=== PATIENT | male | born 1950 | race Caucasian/White ===

== ENCOUNTER 2018-01-24 11:03 | Day surgery (SDC) | payer OTHER ==
--- NOTE | 2018-01-22 14:18 | RAD REPORT ---
EXAM DESCRIPTION: RADOP - Outpt Chest Pa/Lat (2 Views) - 01/22/2018 2:12 pm CLINICAL HISTORY: Preop COMPARISON: 2014 FINDINGS: The lungs appear clear of acute infiltrate. The heart is upper limits normal size. IMPRESSION: No acute abnormality is displayed
[2018-01-22 15:08] LABS: Urine Appearance CLEAR; Urine Bilirubin NEGATIVE (NEG); Urine Blood NEGATIVE (NEG); Urine Color DK YELLOW; Urine Glucose NEGATIVE (NEG); Urine Protein NEGATIVE (NEG); Urine pH 7.5 (5.0-7.0)
[2018-01-22 15:10] LABS: Absolute Lymphocytes (CBC) 1.9 K/uL (0.7-4.9); Absolute Monocytes 0.7 K/uL (0.1-1.3); Absolute Neutrophil 3.2 K/uL (1.8-8.0); Basophils % 0.5 % (0-1.3); Eosinophils % 5.2 % (0-4.4); Hematocrit 41.4 % (39.6-49.0); Lymphocytes % 30.6 % (15.3-44.8); MCH 35.6 pg (27.0-35.0); MCV 103.5 fL (80-100); MPV 9.1 fL (7.6-11.3); Monocytes % 10.7 % (3.3-12.3)
[2018-01-22 15:15] LABS: Urine Microscopic Reflex ORDER UMIC
[2018-01-22 15:22] LABS: Potassium 4.1 mEq/L (3.6-5.0)
[2018-01-22 15:30] LABS: Protime INR 0.95
[2018-01-22 15:54] LABS: Urine Bacteria <20 /HPF (NONE SEEN); Urine Culture Reflex Order NOT NEEDED
--- NOTE | 2018-01-22 16:20 | EKG ---
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
[2018-01-24] MEDS ORDERED: GENTAMICIN 80 MG/100 ML BAG 80 MG/100 ML BAG IV ONE (11:30)
[2018-01-24] MEDS ORDERED: Ringers Lactate 1,000 ML IV ONE (11:30)
[2018-01-24] MEDS ORDERED: PROPOFOL 200 MG/20 ML VIAL IV ONE (12:32)
[2018-01-24] MEDS ORDERED: MIDAZOLAM HCL 2 MG/2 ML INJ ONE (12:33)
[2018-01-24] MEDS ORDERED: LIDOCAINE 2% MPF 5 ML VIAL ONE (12:33)
[2018-01-24] MEDS ORDERED: FENTANYL CITR 100 MCG/2 ML ONE (12:33)
[2018-01-24] MEDS ORDERED: ONDANSETRON 4 MG/2 ML VIAL ONE (12:33)
[2018-01-24 14:13] VITALS: TEMP 98
[2018-01-24 15:16] VITALS: BP 158/62; O2SAT 98
== END 2018-01-24 15:00 | disposition home or self-care (01) ==
LOC: OR 11:03
PROVIDERS: ATTEND Urology
PROC: 0VT08ZZ Resection of Prostate, Via Natural or Artificial Opening Endoscopic (ICD-10-PCS; principal; 2018-01-24 12:00)
DX: N40.1 Benign prostatic hyperplasia with lower urinary tract symptoms (principal); R39.12 Poor urinary stream; R31.0 Gross hematuria; N52.9 Male erectile dysfunction, unspecified; E29.1 Testicular hypofunction; I10 Essential (primary) hypertension; J44.9 Chronic obstructive pulmonary disease, unspecified; J45.909 Unspecified asthma, uncomplicated; K21.9 Gastro-esophageal reflux disease without esophagitis; K51.90 Ulcerative colitis, unspecified, without complications; M19.90 Unspecified osteoarthritis, unspecified site; M10.9 Gout, unspecified; Z87.891 Personal history of nicotine dependence; Z82.49 Family history of ischemic heart disease and other diseases of the circulatory system
CPT/HCPCS: 36415; 52601; 71046; 80048; 85025; 85610; 85730; 87086; 87088; 88305; 93005; J1580; J2250; J2405; J3010; 81003; 81015

== ENCOUNTER 2018-11-19 13:33 | Emergency (ER) | payer OTHER ==
[2018-11-19 14:24] LABS: Absolute Lymphocytes (CBC) 1.3 K/uL (0.7-4.9); Absolute Monocytes 0.7 K/uL (0.1-1.3); Absolute Neutrophil 6.1 K/uL (1.8-8.0); Basophils % 0.3 % (0-1.3); Eosinophils % 3.9 % (0-4.4); Hematocrit 40.3 % (39.6-49.0); Lymphocytes % 15.9 % (15.3-44.8); MPV 9.5 fL (7.6-11.3); Monocytes % 7.7 % (3.3-12.3); RBC Red Blood Cell Count 3.82 M/uL (4.33-5.43)
[2018-11-19 14:25] LABS: Protime INR 1.02
[2018-11-19 14:46] LABS: ALT/SGPT 41 U/L (12-78); AST/SGOT 51 U/L (15-37); Albumin 3.8 g/dL (3.4-5.0); Alkaline Phosphatase 126 U/L (45-117); BUN Blood Urea Nitrogen 25 mg/dL (7-18); Bicarbonate 28 mmol/L (21-32); Bilirubin Direct 0.4 mg/dL (0-0.2); Bilirubin Total 0.9 mg/dL (0.2-1.0); Glucose Level 112 mg/dL (74-106); Magnesium 1.9 mg/dL (1.8-2.4); NT PRO-BNP 101 pg/mL (<125); Potassium 3.6 mmol/L (3.5-5.1); Protein, Total 8.1 g/dL (6.4-8.2); Sodium Level 136 mmol/L (136-145); Troponin (Emerg Dept Use Only) < 0.02 ng/mL (0.0-0.045)
[2018-11-19 14:57] LABS: Blood Morphology Comment NOTED (NOT SEEN); Macrocytosis 1+; Platelet Estimate ADEQ; Urine White Blood Cell Casts OK
--- NOTE | 2018-11-19 15:01 | RAD REPORT ---
EXAM DESCRIPTION: RAD - Chest Single View - 11/19/2018 2:53 pm CLINICAL HISTORY: CHEST PAIN Chest pain. COMPARISON: CHEST PA AND LAT 2 VIEW dated 05/05/2015 FINDINGS: Portable technique limits examination quality. The lungs are grossly clear. The heart is normal in size. Mildly tortuous thoracic aorta. No displace d fractures. IMPRESSION: No acute intrathoracic process suspected.
[2018-11-19] MEDS ORDERED: CYANOCOBALAMIN 1000MCG/ML INJ IM ONE (16:00)
--- NOTE | 2018-11-19 16:46 | EDPHYS ---
Physician Documentation [facility] Name: Felice Cervantes Age: 68 yrs Sex: Male : 1950 Arrival Date: 11/19/2018 Time: 13:36 Bed 14 Private MD: ED Physician Delfino Rehman HPI: 11/19 13:44 This 68 yrs old Male presents to ER via EMS with complaints of Chest Pain. snw 13:44 The patient or guardian reports chest pain that is located primarily in the anterior snw chest wall, left. Onset: suddenly. The pain does not radiate. Associated signs and symptoms: Pertinent positives: diaphoresis. The chest pain is described as clutching. Duration: The patient or guardian reports a single episode, resolved post sublingual NTG x 1. Modifying factors: The symptoms are alleviated by NTG. Severity of pain: At its worst the pain was severe. EMS care prior to arrival includes: aspirin, saline lock, supplemental oxygen. The patient has not experienced similar symptoms in the past. The patient has not recently seen a physician, sees Dr. Zavala and Dr. Rubio. pt states he drank 3 tall boys daily until this past . 4 days ago. Historical: - Allergies: 13:43 Amoxicillin-Pot Clavulanate; ph - Home Meds: 16:46 aspirin 81 mg Oral chew 1 tab once daily [Active]; simvastatin 10 mg Oral tab 1 tab hb once daily [Active]; allopurinol 300 mg Oral tab 1 tab once daily [Active]; losartan 25 mg oral tab 1 tab once daily [Active]; carvedilol 25 mg oral tab 1 tab 2 times per day [Active]; Dexilant 60 mg oral CpDB 1 cap once daily [Active]; clonidine HCl 0.1 mg Oral tab 1 tab 2 times per day [Active]; folic acid 400 mcg Oral tab 1 tab once daily [Active]; Asacol Oral 800 mg [Active]; AndroGel transdermal transdermal [Active]; tamsulosin 0.4 mg oral cp24 1 cap once daily [Active]; hydrochlorothiazide 12.5 mg Oral tab 1 tab once daily [Active]; Super B Maxi Complex 0.4 mg oral tab [Active]; Vitamin B-12 2,000 mcg Oral TbER [Active]; Vitamin C 1,000 mg Oral tab [Active]; Vitamin D Oral [Active]; Vitamin E Oral [Active]; [place]-3 Fish Oil oral oral [Active]; coenzyme Q10 oral oral [Active]; Danielle 180 mg Oral tab 1 tab once daily [Active]; Zyrtec 10 mg Oral chew 1 tab once daily [Active]; - PMHx: 13:43 Hyperlipidemia; Hypertension; Gout; ph - Immunization history:: Adult Immunizations unknown. - Social history:: Smoking status: Patient/guardian denies using tobacco, Patient uses alcohol, Pt states, " I quit drinking about 4 days ago." Pt reports drinking approx 4 drinks of vodka per day. - Ebola Screening: : No symptoms or risks identified at this time. ROS: 13:37 Constitutional: Negative for fever, chills, and weight loss, Eyes: Negative for injury, snw pain, redness, and discharge, ENT: Negative for injury, pain, and discharge, Neck: Negative for injury, pain, and swelling, Respiratory: Negative for shortness of breath, cough, wheezing, and pleuritic chest pain, Abdomen/GI: Negative for abdominal pain, nausea, vomiting, diarrhea, and constipation, Back: Negative for injury and pain, : Negative for injury, bleeding, discharge, and swelling, MS/Extremity: Negative for injury and deformity, Skin: Negative for injury, rash, and discoloration, Neuro: Negative for headache, weakness, numbness, tingling, and seizure. 13:37 Cardiovascular: Positive for chest pain, diaphoresis. Exam: 13:37 Constitutional: This is a well developed, well nourished patient who is awake, alert, snw and in no acute distress. Head/Face: Normocephalic, atraumatic. Eyes: Pupils equal round and reactive to light, extra-ocular motions intact. Lids and lashes normal. Conjunctiva and sclera are non-icteric and not injected. Cornea within normal limits. Periorbital areas with no swelling, redness, or edema. ENT: Nares patent. No nasal discharge, no septal abnormalities noted. Tympanic membranes are normal and external auditory canals are clear. Oropharynx with no redness, swelling, or masses, exudates, or evidence of obstruction, uvula midline. Mucous membranes moist. Neck: Trachea midline, no thyromegaly or masses palpated, and no cervical lymphadenopathy. Supple, full range of motion without nuchal rigidity, or vertebral point tenderness. No Meningismus. Chest/axilla: Normal chest wall appearance and motion. Nontender with no deformity. No lesions are appreciated. Cardiovascular: Regular rate and rhythm with a normal S1 and S2. No gallops, murmurs, or rubs. Normal PMI, no JVD. No pulse deficits. Respiratory: Lungs have equal breath sounds bilaterally, clear to auscultation and percussion. No rales, rhonchi or wheezes noted. No increased work of breathing, no retractions or nasal flaring. Abdomen/GI: Soft, non-tender, with normal bowel sounds. No distension or tympany. No guarding or rebound. No evidence of tenderness throughout. Back: No spinal tenderness. No costovertebral tenderness. Full range of motion. Skin: Warm, dry with normal turgor. Normal color with no rashes, no lesions, and no evidence of cellulitis. MS/ Extremity: Pulses equal, no cyanosis. Neurovascular intact. Full, normal range of motion. Neuro: Awake and alert, GCS 15, oriented to person, place, time, and situation. Cranial nerves II-XII grossly intact. Motor strength 5/5 in all extremities. Sensory grossly intact. Cerebellar exam normal. Normal gait. Vital Signs: 13:41 BP 134 / 87; Pulse 83; Resp 18; Temp 97.8; Pulse Ox 98% on R/A; Weight 105.23 kg; ph Height 6 ft. 0 in. (182.88 cm); Pain 0/10; 15:30 BP 136 / 82; Pulse 81; Resp 18; Pulse Ox 99% on R/A; ph 16:33 BP 141 / 80; Pulse 79; Resp 18; Temp 97.2(O); Pulse Ox 96% on R/A; Pain 0/10; mh5 13:41 Body Mass Index 31.46 (105.23 kg, 182.88 cm) ph MDM: 13:47 Patient medically screened. snw 16:45 The patient was not given aspirin in the Emergency Department. Administered by EMS. snw Data reviewed: vital signs, nurses notes. Data interpreted: Pulse oximetry: on room air is 96 %. Interpretation: acceptable. Counseling: I had a detailed discussion with the patient and/or guardian regarding: the historical points, exam findings, and any diagnostic results supporting the discharge/admit diagnosis, the presence of at least one elevated blood pressure reading (>120/80) during this emergency department visit, lab results, radiology results, the need for further work-up and treatment in the hospital, pt wants to leave AMA. Dr. Hernandez has seen patient and discussed need for re-evaluation. Pt states he gets EKGs q 3 months and will have follow up with Dr. Zavala next week. Advised return to ED for any chest pain, SOB, diaphoresis. Pt states understanding. 11/19 13:37 Order name: Basic Metabolic Panel; Complete Time: 14:47 snw 11/19 13:37 Order name: CBC with Diff; Complete Time: 14:58 snw 11/19 13:37 Order name: LFT's; Complete Time: 14:47 snw 11/19 13:37 Order name: Magnesium; Complete Time: 14:47 snw 11/19 13:37 Order name: NT PRO-BNP; Complete Time: 14:47 snw 11/19 13:37 Order name: PT-INR; Complete Time: 14:33 snw 11/19 13:37 Order name: Troponin (emerg Dept Use Only); Complete Time: 14:47 snw 11/19 13:37 Order name: XRAY Chest (1 view); Complete Time: 15:04 snw 11/19 13:37 Order name: EKG; Complete Time: 13:39 snw 11/19 13:37 Order name: Cardiac monitoring; Complete Time: 15:03 snw 11/19 13:37 Order name: EKG - Nurse/Tech; Complete Time: 15:03 snw 11/19 13:37 Order name: ETOH Level; Complete Time: 14:47 snw 11/19 14:31 Order name: CBC Smear Scan; Complete Time: 14:58 EDMS 11/19 13:37 Order name: IV Saline Lock; Complete Time: 15:03 snw 11/19 13:37 Order name: Labs collected and sent; Complete Time: 15:03 snw 11/19 13:37 Order name: O2 Per Protocol; Complete Time: 15:03 snw 11/19 13:37 Order name: O2 Sat Monitoring; Complete Time: 15:03 snw Administered Medications: No medications were administered Disposition: 11/20 07:07 Co-signature as Attending Physician, Delfino Rehman MD I agree with the assessment and [facility] plan of care. Disposition: 11/19/18 16:49 Patient has left against medical advice. Impression: Chest pain, unspecified. - Patients states they are going to Home. - Condition is Stable. - Discharge Instructions: Nonspecific Chest Pain, Hypertension, Aspirin and Your Heart. - Prescriptions for Nitrostat 0.4 mg Sublingual Tablet, Sublingual - place 1 tablet by SUBLINGUAL route one time As needed - at the first sign of an attack; no more than 3 tablets are recommended within a 15 minute period.; 25 tablet. Protonix 40 mg Oral Tablet - take 1 tablet by ORAL route once daily; 30 tablet. Follow up: Private Physician; When: Tomorrow; Reason: Recheck today's complaints, Continuance of care, Re-evaluation by your physician. - Problem is new. - Symptoms are resolved. Signatures: Dispatcher [employer] Delfino Cardenas MD MD cha Therrien, Shelly, DISPLAY DESIGNER-C DISPLAY DESIGNER-Csnw Jennifer Oneal, KVNG RN Kim Abrams RN RN Corrections: (The following items were deleted from the chart) 11/19 16:48 16:45 Hospitalization Ordered by Julio Cesar Hernandez DO for Observation. Preliminary snw diagnosis is Chest pain, unspecified. Bed requested for Telemetry/MedSurg (observation). Status is Observation. Condition is Stable. Problem is new. Symptoms are resolved. UTI on Admission? No. snw 17:26 16:49 11/19/2018 16:49 Patients has left against medical advice. Impression: Chest ph pain, unspecified. Patient states they are going to Home. Condition is Stable. Follow up: Private Physician; When: Tomorrow; Reason: Recheck today's complaints, Continuance of care, Re-evaluation by your physician. Problem is new. Symptoms are resolved. snw
--- NOTE | 2018-11-19 16:46 | ER ---
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 Transition of care: patient was not received from another setting of care. Onset of symptoms was November 19, 2018. Risk Assessment: Do you want to hurt yourself or someone else? Patient reports no desire to harm self or others. Initial Sepsis Screen: Does the patient meet any 2 criteria? No. Patient's initial sepsis screen is negative. Does the patient have a suspected source of infection? No. Patient's initial sepsis screen is negative. Care prior to arrival: Medication(s) given: ASA, 81 mg, x 4, IV initiated. 20 GA, in the left hand. 13:36 Method Of Arrival: EMS: [facility] ph 13:36 Acuity: MARIAH 3 ph Historical: - Allergies: 13:43 Amoxicillin-Pot Clavulanate; ph - Home Meds: 16:46 aspirin 81 mg Oral chew 1 tab once daily [Active]; simvastatin 10 mg Oral tab 1 tab hb once daily [Active]; allopurinol 300 mg Oral tab 1 tab once daily [Active]; losartan 25 mg oral tab 1 tab once daily [Active]; carvedilol 25 mg oral tab 1 tab 2 times per day [Active]; Dexilant 60 mg oral CpDB 1 cap once daily [Active]; clonidine HCl 0.1 mg Oral tab 1 tab 2 times per day [Active]; folic acid 400 mcg Oral tab 1 tab once daily [Active]; Asacol Oral 800 mg [Active]; AndroGel transdermal transdermal [Active]; tamsulosin 0.4 mg oral cp24 1 cap once daily [Active]; hydrochlorothiazide 12.5 mg Oral tab 1 tab once daily [Active]; Super B Maxi Complex 0.4 mg oral tab [Active]; Vitamin B-12 2,000 mcg Oral TbER [Active]; Vitamin C 1,000 mg Oral tab [Active]; Vitamin D Oral [Active]; Vitamin E Oral [Active]; [place]-3 Fish Oil oral oral [Active]; coenzyme Q10 oral oral [Active]; Danielle 180 mg Oral tab 1 tab once daily [Active]; Zyrtec 10 mg Oral chew 1 tab once daily [Active]; - PMHx: 13:43 Hyperlipidemia; Hypertension; Gout; ph - Immunization history:: Adult Immunizations unknown. - Social history:: Smoking status: Patient/guardian denies using tobacco, Patient uses alcohol, Pt states, " I quit drinking about 4 days ago." Pt reports drinking approx 4 drinks of vodka per day. - Ebola Screening: : No symptoms or risks identified at this time. Screenin:41 Abuse screen: Denies threats or abuse. Denies injuries from another. Nutritional ph screening: No deficits noted. Tuberculosis screening: No symptoms or risk factors identified. Fall Risk None identified. Assessment: 14:00 General: Appears in no apparent distress. comfortable, well groomed, Behavior is calm, ph cooperative, appropriate for age, Denies fever, feeling ill. Pain: Denies pain. 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 Neuro: Level of Consciousness is awake, alert, obeys commands, Oriented to person, place, time, situation. 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 Respiratory: Airway is patent Respiratory effort is even, unlabored, Respiratory pattern is regular, symmetrical. GI: No signs and/or symptoms were reported involving the gastrointestinal system. Derm: Skin is intact, is healthy with good turgor, Skin is pink, warm \\T\\ dry. Musculoskeletal: Circulation, motion, and sensation intact. Range of motion: intact in all extremities. 15:00 Reassessment: Patient appears in no apparent distress at this time. Patient and/or ph family updated on plan of care and expected duration. Pain level reassessed. Patient is alert, oriented x 3, equal unlabored respirations, skin warm/dry/pink. Patient denies pain at this time. 16:00 Reassessment: Patient appears in no apparent distress at this time. Patient and/or ph family updated on plan of care and expected duration. Pain level reassessed. Patient is alert, oriented x 3, equal unlabored respirations, skin warm/dry/pink. Pt resting quietly, awaiting lab and radiology results, SO at bedside, VSS Patient denies pain at this time. 17:00 Reassessment: Patient appears in no apparent distress at this time. Patient and/or ph family updated on plan of care and expected duration. Pain level reassessed. Patient is alert, oriented x 3, equal unlabored respirations, skin warm/dry/pink. Dr Hernanedz and MARY Love at bedside to speak w/ pt, pt states that he does not wiosh to be admitted to hospital, pt to leave AMA Patient denies pain at this time. Patient states feeling better. Patient states symptoms have improved. 18:52 Reassessment: Prescriptions called in to [facility]. hb Vital Signs: 13:41 BP 134 / 87; Pulse 83; Resp 18; Temp 97.8; Pulse Ox 98% on R/A; Weight 105.23 kg; ph Height 6 ft. 0 in. (182.88 cm); Pain 0/10; 15:30 BP 136 / 82; Pulse 81; Resp 18; Pulse Ox 99% on R/A; ph 16:33 BP 141 / 80; Pulse 79; Resp 18; Temp 97.2(O); Pulse Ox 96% on R/A; Pain 0/10; mh5 13:41 Body Mass Index 31.46 (105.23 kg, 182.88 cm) ph ED Course: 13:36 Patient arrived in ED. ph 13:36 Irene Humphreys FNP-C [facility]. snw 13:36 Delfino Rehman MD is Attending Physician. snw 13:41 Triage completed. ph 13:42 Arm band placed on. ph 13:42 EKG done, by ecg technician. reviewed by Irene LOPEZ. sm3 14:00 Maintain EMS IV. Dressing intact. Site clean \\T\\ dry. Gauge \\T\\ site: 20 Lhand. Patient ph maintains SpO2 saturation greater than 95% on room air. 14:54 XRAY Chest (1 view) In Process Unspecified. EDMS 15:03 Jennifer Oneal, RN is Primary Nurse. ph 16:34 Patient has correct armband on for positive identification. Placed in gown. Bed in low mh5 position. Call light in reach. Side rails up X 1. Adult w/ patient. Pillow given. ekg monitor tech on. Pulse ox on. NIBP on. 16:41 No provider procedures requiring assistance completed. ph 16:45 Julio Cesar Hernandez DO is Hospitalizing Provider. snw Administered Medications: No medications were administered Outcome: 16:45 Decision to Hospitalize by Provider. snw 17:25 AMA AMA form signed ph 17:25 Condition: stable 17:26 Patient left the ED. ph Signatures: Dispatcher [employer] EDNM Irene Humphreys, ADJUNCT FACULTY INSTRUCTOR-C ADJUNCT FACULTY INSTRUCTOR-Csnw Jennifer Oneal, KVNG RN Kim Bernal RN RN hb Martinez, Maria [address] [facility]
--- NOTE | 2018-11-19 17:09 | EKG ---
Test Date: 2018-11-19 Test Time: 13:32:40 Compressor House Operator: MARLIN MEASUREMENT RESULTS: Intervals: Rate: 82 WA: 234 QRSD: 140 QT: 412 QTc: 481 [place]: P: 87 WA: 234 QRS: 5 T: 25 INTERPRETIVE STATEMENTS: Sinus rhythm with 1st degree AV block Right bundle branch block Abnormal ECG Compared to ECG 01/22/2018 13:58:03 No significant changes Electronically Signed On 11-19-18 17:08:11 PROTOTYPE ENGINEER MANAGER by Freddy Flores
--- NOTE | 2018-11-19 17:24 | P.CNS ---
Date of Consult: 11/19/18 Reason for Consult: ER evaluation for admission Requesting Physician: Milla Gupta (Irene Gupta NP) Primary Care Provider: Dr. Rubio; Cardiology-Dr. Zavala Chief Complaint: Chest pain History of Present Illness: 68-year-old male presented to the emergency room with chest pain. Patient reported chest pain today. This occurred while having an discussion with his . He seen under stress. Patient has history of hypertension, hyperlipidemia and gout. Patient took nitro which helped relieve the pain. He denied any significant shortness of breath. He came to the ER for further evaluation. In the ER patient evaluated. No significant ST changes noted. Cardiac enzymes unremarkable. Chest x-ray unremarkable. CBC and BMP unremarkable. ER provider recommended admission. I came to assess the patient for admission. Patient stable at this time. Patient does not desire to stay. He plans to leave AMA. Patient reports that he sees cardiology on regular basis. He is to see Cardiology within the next week. He feels that he does not need cardiac evaluation at this time. Allergies amoxicillin [From Augmentin] Adverse Reaction (Verified 01/24/18 11:40) diarrhea clavulanic acid [From Augmentin] Adverse Reaction (Verified 01/24/18 11:40) diarrhea Home medications list reviewed: Yes Home Medications: Allopurinol [Zyloprim] 300 mg PO DAILY 01/22/18 Ascorbic Acid [Vitamin C] 1,000 mg PO DAILY 01/22/18 Aspirin [Aspirin EC 81 MG] 81 mg PO DAILY 01/22/18 Carvedilol [Coreg] 25 mg PO BID 01/22/18 Cetirizine HCl [Zyrtec] 10 mg PO DAILY 01/22/18 Cholecalciferol (Vitamin D3) [Vitamin D 5,000 Iu Cap] 5,000 unit PO DAILY Cyanocobalamin (Vitamin B-12) [Vitamin B-12] 2,500 mcg SL DAILY 01/22/18 Dexlansoprazole [Dexilant] 60 mg PO DAILY 01/22/18 Ferrous Fumarate/Vit Bcomp&C [Super B-Complex Caplet] 1 each PO DAILY 01/22/18 Fexofenadine HCl [Danielle Allergy] 180 mg PO DAILY 01/22/18 Folic Acid 0.4 mg PO DAILY 01/22/18 Lactobacillus Combo No.13 [Probiotic Pearls Complete] 1 each PO DAILY 01/22/18 Losartan Potassium [Cozaar] 25 mg PO [id number] 01/22/18 [place]-3S/Dha/Epa/Fish Oil [[place]-3 Fish Oil 1,000 mg Sfgl] 1 each PO DAILY 01/22 Simvastatin 10 mg PO DAILY 01/22/18 Tamsulosin [Flomax] 0.4 mg PO BEDTIME 01/22/18 Testosterone [Androgel] 1.25 gm TD DAILY 01/22/18 Vitamin E 400 unit PO DAILY 01/22/18 cloNIDine HCl [Catapres] 0.1 mg PO BID 01/22/18 hydroCHLOROthiazide [Hydrochlorothiazide*] 12.5 mg PO DAILY 01/22/18 - Past Medical/Surgical History Diabetic: No -: Hypertension -: Hyperlipidemia -: Gout -: GERD -: BPH -: Former tobacco use -: Alcohol use Past Surgical History: Reviewed- Non-Contributory Psychosocial/ Personal History: Patient is - Family History Father Family History: Reviewed- Non-Contributory - Social History Smoking Status: Former smoker Alcohol use: Yes CD- Drugs: No Caffeine use: Yes Place of Residence: Home Review of Systems General: As per HPI Eyes: Unremarkable ENT: Unremarkable Respiratory: Unremarkable Cardiovascular: Chest Pain, As per HPI Gastrointestinal: Unremarkable Genitourinary: Unremarkable Musculoskeletal: Unremarkable Integumentary: Unremarkable Neurological: Unremarkable Lymphatics: Unremarkable Physical Examination General: Alert, In no apparent distress, Oriented x3, Cooperative HEENT: Atraumatic, Normocephalic, PERRLA, Mucous membr. moist/pink Neck: Supple, No Thyromegaly Respiratory: Clear to auscultation bilaterally, Normal air movement Cardiovascular: Normal pulses, Regular rate/rhythm Gastrointestinal: Normal bowel sounds, Soft and benign, Non-distended, No tenderness, No masses, No rebound, No guarding Musculoskeletal: No erythema, No tenderness, No warmth Integumentary: No tenderness/swelling, No erythema, No warmth, No cyanosis Neurological: Normal speech, Normal strength at 5/5 x4 extr, Normal tone, Normal affect Laboratory Data (last 24 hrs) 11/19/18 14:05: PT 12.0, INR 1.02 11/19/18 14:05: WBC 8.4, Hgb 14.0, Hct 40.3, Plt Count 182 11/19/18 14:05: Sodium 136, Potassium 3.6, BUN 25 H, Creatinine 1.22, Glucose 112 H, Magnesium 1.9, Total Bilirubin 0.9, AST 51 H, ALT 41, Alkaline Phosphatase 126 H Conclusions/Impression: Impression: Chest pain Hypertension Hyperlipidemia GERD Former tobacco use Alcohol use BPH Gout Plan: Patient evaluated. Patient would benefit with observation to further assess this condition. Patient would benefit with cardiac evaluation including echocardiogram and possible cardiac stress test. Patient does not desire to be admitted at this time. Patient wishes to leave. Patient plans to leave AMA. Patient understands risks of leaving. 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 I recommended that he follow up with Cardiology tomorrow. If chest pain persists he is to return to the hospital. Patient will continue with his current medications for hypertension, hyperlipidemia, GERD, BPH and gout. Tobacco and alcohol cessation education will be provided. Case discussed with ER provider. ER provider to discuss with patient about leaving AMA. Time Spent Managing Pts care (In Minutes): 55
[2018-11-19 17:47] VITALS: BP 141/80; TEMP 97.2; O2SAT 96
== END 2018-11-19 17:26 | disposition left against medical advice (07) ==
LOC: ER 13:33
DX: R07.9 Chest pain, unspecified (principal); R61 Generalized hyperhidrosis; I10 Essential (primary) hypertension; E78.5 Hyperlipidemia, unspecified; Z79.82 Long term (current) use of aspirin; Z88.1 Allergy status to other antibiotic agents; Z87.891 Personal history of nicotine dependence
CPT/HCPCS: 36415; 71045; 80048; 80076; 80320; 83735; 83880; 84484; 85025; 85610; 93005; 99285; J3420